=== PATIENT | male | born 1950 | race Hispanic/Latino ===

== ENCOUNTER 2024-03-26 17:51 | Inpatient (IN) | payer OTHER ==
[2024-03-26] MEDS ORDERED: FAMOTIDINE 20 MG/2 ML VIAL IV ONE (18:29)
[2024-03-26] MEDS ORDERED: NA CHLORIDE 0.9% 2,000 ML ONE (18:29)
[2024-03-26] MEDS ORDERED: HYDROCORTISONE SUC 100 MG INJ ONE (18:29)
[2024-03-26] MEDS ORDERED: CEFTRIAXONE 1000 MG/VIAL ONE (18:29)
[2024-03-26 18:51] LABS: Absolute Lymphocytes (CBC) 0.4 K/uL (0.7-4.9); Absolute Monocytes 0.1 K/uL (0.1-1.3); Absolute Neutrophil 9.5 K/uL (1.8-8.0); Basophils % 0.1 % (0-1.3); Hematocrit 45.9 % (39.6-49.0); Hemoglobin 15.4 g/dL (13.6-17.9); Lymphocytes % 3.7 % (15.3-44.8); MCH 32.5 pg (27.0-35.0); MCHC 33.5 g/dL (32.0-36.0); MCV 97.2 fL (80-100); MPV 8.6 fL (7.6-11.3); Monocytes % 0.5 % (3.3-12.3); Neutrophils % 95.7 % (41.7-73.7); PT Prothrombin Time 12.5 SECONDS (9.4-12.5); Platelets 462 thou/uL (152-406); Protime INR 1.12; RBC Red Blood Cell Count 4.72 M/uL (4.33-5.43); Red Cell Distribution Width 13.4 % (12.1-15.2)
[2024-03-26 18:58] LABS: Albumin 3.7 g/dL (3.4-5.0); Anion Gap 20.2 mEq/L (5.0-15.0); Bilirubin Direct 0.8 mg/dL (0-0.2); Bilirubin Indirect, Calculated 0.5 mg/dL (0.2-0.8); Bilirubin Total 1.3 mg/dL (0.2-1.0); Globulin 3.7 g/dL (2.3-3.5); Magnesium 2.5 mg/dL (1.6-2.4); Potassium 4.2 mEq/L (3.5-5.1); Protein, Total 7.4 g/dL (6.4-8.2); Troponin High Sensitivity 21.9 pg/mL (<58.9)
--- NOTE | 2024-03-26 19:16 | RAD REPORT ---
EXAM DESCRIPTION: Cinthia Single View03/26/2024 6:43 pm CLINICAL HISTORY: COUGH COMPARISON: No comparisons TECHNIQUE: Portable AP view of the chest. FINDINGS: The lungs are clear. No pneumothorax or effusion. The cardiomediastinal contours are unre markable. IMPRESSION: No acute cardiopulmonary process.
--- NOTE | 2024-03-26 19:16 | ER ---
Nurse's Notes [facility] Name: Mauricio Gomez Age: 74 yrs Sex: Male : 1950 Arrival Date: 03/26/2024 Time: 17:51 Bed 6 Private MD: Diagnosis: Type 1 diabetes mellitus with hyperglycemia-UNCONTROLLED;Acute kidney failure, unspecified;Dehydration;Syncope Near;Weakness;Sepsis, unspecified organism Presentation: 03/26 17:56 Chief complaint: EMS states: Bystander toned out EMS for a fall. Pt was unloading rs5 groceries from vehicle and legs gave out on him, layed on floor for 30-40 min before help was called. Pt reports LOC. EMS reports pt has been in and out of consciousness in ambulance. Blood sugar readings in 400's. Coronavirus screen: At this time, the client does not indicate any symptoms associated with coronavirus-19. Ebola Screen: No symptoms or risks identified at this time. Initial Sepsis Screen: Does the patient meet any 2 criteria? HR > 90 bpm. Yes Does the patient have a suspected source of infection? No. Patient's initial sepsis screen is negative. Risk Assessment: Do you want to hurt yourself or someone else? Patient reports no desire to harm self or others. Onset of symptoms was March 26, 2024. 17:56 Method Of Arrival: EMS: [facility] rs5 17:56 Acuity: DANA 3 rs5 Historical: - Allergies: 18:00 No Known Allergies; rs5 - PMHx: 18:00 Hypertensive disorder; Cerebrovascular accident; Diabetes mellitus; rs5 - PSHx: 18:01 None; rs5 - Immunization history:: Adult Immunizations up to date. - Infectious Disease History:: Denies. - Social history:: Smoking status: Patient denies any tobacco usage or history of. - Family history:: not pertinent. Screenin:57 [facility] ED Fall Risk Assessment (Adult) History of falling in the last 3 months, rs5 including since admission Yes- single mechanical fall (1 pt) Confusion or Disorientation No (0 pts) Intoxicated or Sedated No (0 pts) Impaired Gait Yes (1 pt) Mobility Assist Device Used No (0 pt) Altered Elimination No (0 pt) Score/Fall Risk Level 0 - 2 = Low Risk Oriented to surroundings, Maintained a safe environment. Abuse screen: Denies threats or abuse. Nutritional screening: No deficits noted. Tuberculosis screening: No symptoms or risk factors identified. Assessment: 17:57 General: Appears in no apparent distress. uncomfortable, Behavior is cooperative. Pain: rs5 Denies pain. Neuro: Level of Consciousness is awake, alert, obeys commands, Oriented to person, place, time, situation. Cardiovascular: Patient's skin is warm and dry. Respiratory: Airway is patent Respiratory effort is even, unlabored, Respiratory pattern is regular, symmetrical. GI: Abdomen is round non-distended, Abd is soft and non tender X 4 quads. : No signs and/or symptoms were reported regarding the genitourinary system. EENT: No signs and/or symptoms were reported regarding the EENT system. Derm: No signs and/or symptoms reported regarding the dermatologic system. Musculoskeletal: Range of motion: intact in all extremities, pt reports generalized weakness. 18:57 Reassessment: Patient and/or family updated on plan of care and expected duration. Pain rs5 level reassessed. Patient is alert, oriented x 3, equal unlabored respirations, skin warm/dry/pink. 19:56 Reassessment: Patient appears in no apparent distress at this time. Patient and/or bm8 family updated on plan of care and expected duration. Pain level reassessed. Patient is alert, oriented x 3, equal unlabored respirations, skin warm/dry/pink. Patient denies pain at this time. Neuro: Level of Consciousness is awake, alert, obeys commands, Oriented to person, place, time, situation. Cardiovascular: Denies chest pain, Capillary refill < 3 seconds Patient's skin is warm and dry. Respiratory: Airway is patent Respiratory effort is even, unlabored, Respiratory pattern is regular, symmetrical. GI: Abdomen is round non-distended, Abd is soft and non tender X 4 quads. : No signs and/or symptoms were reported regarding the genitourinary system. EENT: No signs and/or symptoms were reported regarding the EENT system. Derm: No signs and/or symptoms reported regarding the dermatologic system. Musculoskeletal: Range of motion: intact in all extremities. Vital Signs: 17:56 BP 94 / 58; Pulse 105; Resp 17; Pulse Ox 89% on R/A; rs5 19:56 BP 169 / 92; Pulse 108; Resp 17; Temp 98.2; Pulse Ox 100% ; Pain 0/10; bm8 22:33 BP 157 / 78; Pulse 92; Resp 18; Temp 98.2; Pulse Ox 98% ; Pain 0/10; bm8 19:56 Pain Scale: Adult bm8 22:33 Pain Scale: Adult bm8 Patrice Coma Score: 19:56 Eye Response: spontaneous(4). Motor Response: obeys commands(6). Verbal Response: bm8 oriented(5). Total: 15. NIH Stroke Scale Scores: 18:15 NIHSS Score: 0 [facility] ED Course: 17:56 Patient arrived in ED. rs5 17:57 Patient has correct armband on for positive identification. Placed in gown. Bed in low rs5 position. Call light in reach. Side rails up X2. 18:00 Triage completed. rs5 18:04 Kristopher Hughes MD is Attending Physician. sandor 18:05 Inserted saline lock: 20 gauge in right antecubital area, using aseptic technique. rs5 Blood collected. Flushed with 10 mL NS. 18:05 No provider procedures requiring assistance completed. rs5 18:45 XRAY Chest (1 view) In Process Unspecified. EDMS 19:13 Ruth Hubbard is Hospitalizing Provider. sandor 19:19 CT Head Brain wo Cont In Process Unspecified. EDMS 19:19 CT Chest Abdomen Pelvis W/O Contrast In Process Unspecified. EDMS 19:32 Rafael Ayala, RN is Primary Nurse. bm8 19:56 Initial lab(s) drawn, by ga, sent to lab. Inserted saline lock: 18 gauge in left bm8 forearm, using aseptic technique. Blood collected. Flushed with 10 mL NS. 19:56 Client placed on continuous cardiac and pulse oximetry monitoring. NIBP monitoring bm8 applied. library monitor on. Pulse ox on. NIBP on. Notified Nurse Practitioner and/or Physician Guest Experience Manager of a critical lab result(s), bs 409. 22:36 Patient admitted, IV remains in place. bm8 22:36 Provided Education on: need for admission. bm8 22:38 Arm band placed on right wrist. bm8 Administered Medications: 18:20 Drug: NS 0.9% IV 1000 ml IV at 125 ml/hr continuous Route: IV; Rate: 125 ml/hr; Site: rs5 right antecubital; 22:35 Follow up: Response: No adverse reaction; IV Status: Completed infusion; IV Intake: bm8 1000ml 18:20 Drug: Solu-CORTEF IVP 100 mg IVP once Route: IVP; Site: right antecubital; rs5 20:00 Follow up: Response: No adverse reaction bm8 18:20 Drug: NS 0.9% IV 1000 ml IV at 1 bolus Per protocol; 1000 mL bolus Route: IV; Rate: 1 rs5 bolus; Site: right forearm; 20:00 Follow up: Response: No adverse reaction; IV Status: Completed infusion; IV Intake: bm8 1000ml 18:20 Drug: Rocephin IV 1 grams IV at per protocol once; Given slow IV push per pharmacy rs5 instructions Route: IV; Rate: per protocol; Site: right forearm; 20:00 Follow up: Response: No adverse reaction; IV Status: Completed infusion; IV Intake: 02tzmg4 18:40 Drug: Famotidine IVP 20 mg IVP once; dilute with 10 mL 0.9% NaCl; give over 2 minutes rs5 Route: IVP; Site: right antecubital; 20:00 Follow up: Response: No adverse reaction bm8 19:59 Drug: NS 0.9% IV 1000 ml IV at 1 bolus Per protocol; 1000 mL bolus Route: IV; Rate: 1 bm8 bolus; Site: right antecubital; 22:35 Follow up: IV Status: Completed infusion; IV Intake: 1000ml bm8 19:59 Drug: Insulin Regular Human IVP 10 units IVP once {Co-Signature: Karissa Ocampo RN).} Route: IVP; Site: left forearm; 22:24 Follow up: Response: No adverse reaction bm8 19:59 Drug: Insulin Regular Human Sub-Q 10 units Sub-Q once {Co-Signature: lurdes Ocampo RN).} Route: Sub-Q; Site: abdomen; 22:24 Follow up: Response: No adverse reaction bm8 20:49 Drug: NS 0.9% IV 1000 ml IV at 1 bolus Per protocol; 1000 mL bolus Route: IV; Rate: 1 bm8 bolus; Site: right forearm; 22:24 Follow up: Response: No adverse reaction; IV Status: Completed infusion; IV Intake: bm8 1000ml 22:01 Drug: Insulin Regular Human IVP 10 units IVP once {Co-Signature: kd3 (Ninoska, Karissa bm8 RN).} Route: IVP; Site: left forearm; 22:24 Follow up: Response: No adverse reaction bm8 Medication: 19:56 VIS not applicable for this client. bm8 Intake: 20:00 IV: 1000ml; Total: 1000ml. bm8 20:00 IV: 50ml; Total: 1050ml. bm8 22:24 IV: 1000ml; Total: 2050ml. bm8 22:35 IV: 1000ml; Total: 3050ml. bm8 22:35 IV: 1000ml; Total: 4050ml. bm8 Outcome: 19:16 Decision to Hospitalize by Provider. sandor 22:36 Admitted to Med/surg accompanied by nurse, via wheelchair, room 205, bm8 22:36 Condition: stable 22:36 Instructed on the need for admit, 23:09 Patient left the ED. bm8 NIH Stroke Scale - NIH Stroke Score Date: 03/26/2024 Time: 18:15 Total Score = 0 10. Dysarthria (speech clarity - read or repeat words) - 0(Normal) 11. Extinction and Inattention (visual/tactile/auditory/spatial/personal) - 0(No abnormality) 1a. Level of Consciousness (LOC) - 0(Alert) 1b. Level of Consciousness (LOC) (Month \T\ Age) - 0(Both) 1c. LOC Commands (Open \T\ Closes Eyes/Fitter Tacker) - 0(Both) 2. Best Gaze (Lateral Gaze Paresis) - 0(Normal) 3. Visual Field Loss - 0(No visual loss) 4. Facial Palsy - 0(Normal) 5a. Left Arm: Motor (10-second hold) - 0(No drift) 5b. Right Arm: Motor (10-second hold) - 0(No drift) 6a. Left Leg: Motor (5-second hold - always test supine) - 0(No drift) 6b. Right Leg: Motor (5-second hold - always test supine) - 0(No drift) 7. Limb Ataxia (finger/nose \T\ heel/polo - test with eyes open) - 0(Absent) 8. Sensory Loss (pinprick arms/legs/face) - 0(Normal) 9. Best Language: Aphasia (description/naming/reading) - 0(No aphasia) Initials: sandor Signatures: Dispatcher [employer] EDKristopher Guzman MD MD cha Sotelo, Ricky, RN RN rs5 Rafael Ayala RN RN bm8 Karissa Xiao RN kd3 Corrections: (The following items were deleted from the chart) 18:01 17:56 Chief complaint: EMS states: Bystander toned out EMS for a fall. Pt was rs5 unloading groceries from vehicle and legs gave out on him, layed on floor for 30-40 min before help was called. Pt reports LOC. EMS reports pt has been in and out of consciousness in ambulance. rs5
--- NOTE | 2024-03-26 19:16 | EDPHYS ---
Physician Documentation [facility] Name: Mauricio Gomez Age: 74 yrs Sex: Male : 1950 Arrival Date: 03/26/2024 Time: 17:51 Bed 6 Private MD: ED Physician Kristopher Hughes HPI: 03/26 18:15 This 74 yrs old Male presents to ER via EMS with complaints of syncope, sandor nausea, vomiting, weak. 18:15 The patient presents to the emergency department with nausea, vomiting, that is sandor intermittent. Onset: The symptoms/episode began/occurred just prior to arrival. Possible causes: unknown, flare up of bowel problem, irritable bowel disease, sick contacts. The symptoms are aggravated by movement, pressure, food , The symptoms are alleviated by nothing. The patient has experienced near-syncope, almost passed out, felt generally weak. Associated signs and symptoms: Pertinent positives: anorexia, nausea, vomiting. Context: the episode(s) was witnessed, by no one, occurred at home. Associated injury: The patient did not suffer any apparent associated injury. Associated signs and symptoms: Pertinent positives: dizziness, lightheadedness, nausea, vomiting, weakness. Current symptoms: Currently, the patient is not experiencing any symptoms, the patient feels back to baseline. Severity of symptoms: At their worst the symptoms were moderate in the emergency department the symptoms have improved mildly. The patient has experienced similar episodes in the past, a few times. Historical: - Allergies: 18:00 No Known Allergies; rs5 - PMHx: 18:00 Hypertensive disorder; Cerebrovascular accident; Diabetes mellitus; rs5 - PSHx: 18:01 None; rs5 - Immunization history:: Adult Immunizations up to date. - Infectious Disease History:: Denies. - Social history:: Smoking status: Patient denies any tobacco usage or history of. - Family history:: not pertinent. ROS: 18:15 Constitutional: Negative for fever, chills, and weight loss, Eyes: Negative for injury, sandor pain, redness, and discharge, ENT: Negative for injury, pain, and discharge, Neck: Negative for injury, pain, and swelling, Respiratory: Negative for shortness of breath, cough, wheezing, and pleuritic chest pain, Back: Negative for injury and pain, : Negative for injury, bleeding, discharge, and swelling, MS/Extremity: Negative for injury and deformity, Skin: Negative for injury, rash, and discoloration, Psych: Negative for depression, anxiety, suicide ideation, homicidal ideation, and hallucinations, Allergy/Immunology: Negative for hives, rash, and allergies, Endocrine: Negative for neck swelling, polydipsia, polyuria, polyphagia, and marked weight changes, Hematologic/Lymphatic: Negative for swollen nodes, abnormal bleeding, and unusual bruising, 18:15 Cardiovascular: Positive for palpitations, 18:15 Abdomen/GI: Positive for nausea and vomiting, nausea, vomiting, 18:15 Skin: Positive for pallor, 18:15 Neuro: Positive for weakness, Exam: 18:15 Constitutional: This is a well developed, well nourished patient who is awake, alert, sandor and in no acute distress. Head/Face: Normocephalic, atraumatic. Eyes: Pupils equal round and reactive to light, extra-ocular motions intact. Lids and lashes normal. Conjunctiva and sclera are non-icteric and not injected. Cornea within normal limits. Periorbital areas with no swelling, redness, or edema. ENT: Nares patent. No nasal discharge, no septal abnormalities noted. Tympanic membranes are normal and external auditory canals are clear. Oropharynx with no redness, swelling, or masses, exudates, or evidence of obstruction, uvula midline. Mucous membranes moist. Neck: Trachea midline, no thyromegaly or masses palpated, and no cervical lymphadenopathy. Supple, full range of motion without nuchal rigidity, or vertebral point tenderness. No Meningismus. Chest/axilla: Normal chest wall appearance and motion. Nontender with no deformity. No lesions are appreciated. Respiratory: Lungs have equal breath sounds bilaterally, clear to auscultation and percussion. No rales, rhonchi or wheezes noted. No increased work of breathing, no retractions or nasal flaring. Abdomen/GI: Soft, non-tender, with normal bowel sounds. No distension or tympany. No guarding or rebound. No evidence of tenderness throughout. Back: No spinal tenderness. No costovertebral tenderness. Full range of motion. Male : Normal genitalia with no discharge or lesions. MS/ Extremity: Pulses equal, no cyanosis. Neurovascular intact. Full, normal range of motion. Neuro: Awake and alert, GCS 15, oriented to person, place, time, and situation. Cranial nerves II-XII grossly intact. Motor strength 5/5 in all extremities. Sensory grossly intact. Cerebellar exam normal. Normal gait. Psych: Awake, alert, with orientation to person, place and time. Behavior, mood, and affect are within normal limits. 18:15 Cardiovascular: Rate: actual rate is 105 bpm, Rhythm: regular, Pulses: Pulses are 4+ in bilateral radial, brachial, femoral, popliteal, posterior tibial and and dorsalis pedis arteries.. Heart sounds: normal, Edema: is not appreciated, JVD: is not appreciated, 18:15 Musculoskeletal/extremity: ROM: no acute changes, Circulation is intact in all extremities. Sensation intact. Compartment Syndrome exam of affected extremity: is normal. 18:55 ECG was reviewed by the Attending Physician. [facility] Vital Signs: 17:56 BP 94 / 58; Pulse 105; Resp 17; Pulse Ox 89% on R/A; rs5 19:56 BP 169 / 92; Pulse 108; Resp 17; Temp 98.2; Pulse Ox 100% ; Pain 0/10; bm8 22:33 BP 157 / 78; Pulse 92; Resp 18; Temp 98.2; Pulse Ox 98% ; Pain 0/10; bm8 19:56 Pain Scale: Adult bm8 22:33 Pain Scale: Adult bm8 NIH Stroke Scale Scores: 18:15 NIHSS Score: 0 sandor Patrice Coma Score: 19:56 Eye Response: spontaneous(4). Motor Response: obeys commands(6). Verbal Response: bm8 oriented(5). Total: 15. MDM: 18:04 Patient medically screened. sandor 18:20 Differential diagnosis: Nonspecific abd pain, gastritis, cholecystitis, pancreatitis, sandor appendicitis, diverticulitis, viral gastroenteritis, gastroenteritis. Differential Diagnosis: cardiac arrhythmia, cerebrovascular accident, emotional response, GI bleed, idiopathic syncope, pseudo seizure, seizure, sepsis, transient ischemic attack, vasovagal episode. Data reviewed: vital signs, nurses notes, EMS record, lab test result(s), EKG, radiologic studies, CT scan, plain films. Consideration of Admission/Observation Patient was admitted/placed on observation. Escalation of care including admission/observation considered. I considered the following discharge prescriptions or medication management in the emergency department Medications were administered in the Emergency Department. See MAR. Independent interpretation of the following test(s) in the Emergency Department EKG: See my EKG interpretation above. Test considered but Not performed: CT: no ct abd pelvis. Historians other than the Patient: EMS: ems well informed. Care significantly affected by the following chronic conditions: Diabetes, Hypertension, cva. Counseling: I had a detailed discussion with the patient and/or guardian regarding the historical points, exam findings, and any diagnostic results supporting the discharge/admit diagnosis, lab results, radiology results, the need for further work-up and treatment in the hospital. 03/26 18:06 Order name: Basic Metabolic Panel; Complete Time: 19:07 [facility] 03/26 18:06 Order name: CBC with Diff; Complete Time: 18:54 [facility] 03/26 18:06 Order name: LFT's; Complete Time: 19:07 [facility] 03/26 18:06 Order name: Magnesium; Complete Time: 19:07 [facility] 03/26 18:06 Order name: NT PRO-BNP; Complete Time: 19:07 [facility] 03/26 18:06 Order name: PT-INR; Complete Time: 18:54 [facility] 03/26 18:06 Order name: Troponin HS; Complete Time: 19:07 [facility] 03/26 18:06 Order name: Lipase; Complete Time: 19:07 [facility] 03/26 18:06 Order name: Urinalysis w/ reflexes [facility] 03/26 18:14 Order name: Flu; Complete Time: 19:32 [facility] 03/26 18:14 Order name: SARS RAPID; Complete Time: 19:32 [facility] 03/26 18:14 Order name: Blood Culture Adult (2) [facility] 03/26 18:14 Order name: Lactate w/ 2H reflex if indic.; Complete Time: 19:07 [facility] 03/26 19:16 Order name: ABG [facility] 03/26 19:26 Order name: BMP; Complete Time: 20:35 [facility] 03/26 19:52 Order name: Glucose, Ancillary Testing; Complete Time: 20:10 [facility] 03/26 21:04 Order name: Ghost Lactate-NO COLLECT Timer [facility] 03/26 22:04 Order name: Glucose, Ancillary Testing [facility] 03/26 22:39 Order name: Lactate Sepsis 2 HR Follow-up [facility] 03/26 18:06 Order name: XRAY Chest (1 view); Complete Time: 19:32 [facility] 03/26 18:06 Order name: CT Head Brain wo Cont; Complete Time: 20:10 [facility] 03/26 19:08 Order name: CT Chest Abdomen Pelvis W/O Contrast; Complete Time: 20:10 [facility] 03/26 18:06 Order name: Cardiac monitoring; Complete Time: 18:56 [facility] 03/26 18:06 Order name: EKG - Nurse/Tech; Complete Time: 18:56 [facility] 03/26 18:06 Order name: IV Saline Lock; Complete Time: 18:57 [facility] 03/26 18:06 Order name: Labs collected and sent; Complete Time: 18:57 [facility] 03/26 18:06 Order name: O2 Per Protocol; Complete Time: 18:57 [facility] 03/26 18:06 Order name: O2 Sat Monitoring; Complete Time: 18:57 [facility] 03/26 19:26 Order name: IV Saline Lock - Large Bore; Complete Time: 19:59 [facility] EC:55 Rate is 105 beats/min. Rhythm is regular. QRS [place] is Normal. MI interval is normal. sandor QRS interval is normal. QT interval is normal. No Q waves. T waves are Normal. No ST changes noted. Clinical impression: Sinus tachycardia and No evidence of ischemia. Interpreted by me. Reviewed by me. Administered Medications: 18:20 Drug: NS 0.9% IV 1000 ml IV at 125 ml/hr continuous Route: IV; Rate: 125 ml/hr; Site: rs5 right antecubital; 22:35 Follow up: Response: No adverse reaction; IV Status: Completed infusion; IV Intake: bm8 1000ml 18:20 Drug: Solu-CORTEF IVP 100 mg IVP once Route: IVP; Site: right antecubital; rs5 20:00 Follow up: Response: No adverse reaction bm8 18:20 Drug: NS 0.9% IV 1000 ml IV at 1 bolus Per protocol; 1000 mL bolus Route: IV; Rate: 1 rs5 bolus; Site: right forearm; 20:00 Follow up: Response: No adverse reaction; IV Status: Completed infusion; IV Intake: bm8 1000ml 18:20 Drug: Rocephin IV 1 grams IV at per protocol once; Given slow IV push per pharmacy rs5 instructions Route: IV; Rate: per protocol; Site: right forearm; 20:00 Follow up: Response: No adverse reaction; IV Status: Completed infusion; IV Intake: [id number] 18:40 Drug: Famotidine IVP 20 mg IVP once; dilute with 10 mL 0.9% NaCl; give over 2 minutes rs5 Route: IVP; Site: right antecubital; 20:00 Follow up: Response: No adverse reaction bm8 19:59 Drug: NS 0.9% IV 1000 ml IV at 1 bolus Per protocol; 1000 mL bolus Route: IV; Rate: 1 bm8 bolus; Site: right antecubital; 22:35 Follow up: IV Status: Completed infusion; IV Intake: 1000ml bm8 19:59 Drug: Insulin Regular Human IVP 10 units IVP once {Co-Signature: kd3 (Karissa Xiao RN).} Route: IVP; Site: left forearm; 22:24 Follow up: Response: No adverse reaction bm8 19:59 Drug: Insulin Regular Human Sub-Q 10 units Sub-Q once {Co-Signature: kd3 (lurdes Xiao RN).} Route: Sub-Q; Site: abdomen; 22:24 Follow up: Response: No adverse reaction bm8 20:49 Drug: NS 0.9% IV 1000 ml IV at 1 bolus Per protocol; 1000 mL bolus Route: IV; Rate: 1 bm8 bolus; Site: right forearm; 22:24 Follow up: Response: No adverse reaction; IV Status: Completed infusion; IV Intake: bm8 1000ml 22:01 Drug: Insulin Regular Human IVP 10 units IVP once {Co-Signature: kd3 (Karissa Xiao RN).} Route: IVP; Site: left forearm; 22:24 Follow up: Response: No adverse reaction bm8 Disposition Summary: 03/26/24 19:16 Hospitalization Ordered Notes: Hospitalization Status: Inpatient Admission sandor Provider: Ruth Hubbard cha Location: Telemetry/MedSurg (Inpatient) sandor Condition: Fair sandor Problem: new sandor Symptoms: have improved sandor Bed/Room Type: Standard sandor Room Assignment: 210(03/26/24 22:20) kl Diagnosis - Type 1 diabetes mellitus with hyperglycemia - UNCONTROLLED sandor - Acute kidney failure, unspecified sandor - Dehydration sandor - Syncope Near sandor - Weakness sandor - Sepsis, unspecified organism sandor Forms: - Medication Reconciliation Form sandor - SBAR form sandor - Leadership Thank You Letter sandor NIH Stroke Scale - NIH Stroke Score Date: 03/26/2024 Time: 18:15 Total Score = 0 10. Dysarthria (speech clarity - read or repeat words) - 0(Normal) 11. Extinction and Inattention (visual/tactile/auditory/spatial/personal) - 0(No abnormality) 1a. Level of Consciousness (LOC) - 0(Alert) 1b. Level of Consciousness (LOC) (Month \T\ Age) - 0(Both) 1c. LOC Commands (Open \T\ Closes Eyes/Medical Front Desk Specialist) - 0(Both) 2. Best Gaze (Lateral Gaze Paresis) - 0(Normal) 3. Visual Field Loss - 0(No visual loss) 4. Facial Palsy - 0(Normal) 5a. Left Arm: Motor (10-second hold) - 0(No drift) 5b. Right Arm: Motor (10-second hold) - 0(No drift) 6a. Left Leg: Motor (5-second hold - always test supine) - 0(No drift) 6b. Right Leg: Motor (5-second hold - always test supine) - 0(No drift) 7. Limb Ataxia (finger/nose \T\ heel/polo - test with eyes open) - 0(Absent) 8. Sensory Loss (pinprick arms/legs/face) - 0(Normal) 9. Best Language: Aphasia (description/naming/reading) - 0(No aphasia) Initials: sandor Signatures: Dispatcher [employer] EDBrenda Ceja, RN Kristopher Corbett MD MD cha Sotelo, Ricky, RN RN rs5 Rafael Ayala RN RN bm8 Karissa Xiao RN kd3 Corrections: (The following items were deleted from the chart) 18:06 18:06 BASIC METABOLIC PANEL+C.LAB.BRZ ordered. EDMS EDMS 18:06 18:06 CBC+H.LAB.BRZ ordered. EDMS EDMS 18:06 18:06 HEPATIC FUNCTION+C.LAB.BRZ ordered. EDMS EDMS 18:06 18:06 MAGNESIUM+C.LAB.BRZ ordered. EDMS EDMS 18:06 18:06 PROBNP+C.LAB.BRZ ordered. EDMS EDMS 18:06 18:06 PROTIME (+INR)+COAG.LAB.BRZ ordered. EDMS EDMS 18:06 18:06 Troponin High Sensitivity+C.LAB.BRZ ordered. EDMS EDMS 18:06 18:06 LIPASE+C.LAB.BRZ ordered. EDMS EDMS 18:06 18:06 Urinalysis+U.LAB.BRZ ordered. EDMS EDMS 18:06 18:06 Chest Single View+RAD.RAD.BRZ ordered. EDMS EDMS 18:07 18:07 Head Brain Wo Cont+CT.RAD.BRZ ordered. EDMS EDMS 18:15 18:15 Influenza Screen (A \T\ B)+BA.LAB.BRZ ordered. EDMS EDMS 18:15 18:15 SARS-COV-2 Antigen Rapid+I.LAB.BRZ ordered. EDMS EDMS 18:15 18:15 BLOOD CULTURE*+BA.LAB.BRZ ordered. EDMS EDMS 18:15 18:15 LACTATE+C.LAB.BRZ ordered. EDMS EDMS 22:20 19:16 sandor kl
[2024-03-26 19:22] LABS: SARS-CoV-2 Antigen CONTROL BLUE LINE VIS/BG OK; SARS-CoV-2 Antigen Rapid Res Negative (Negative)
--- NOTE | 2024-03-26 19:46 | RAD REPORT ---
EXAM DESCRIPTION: CT - Head Brain Wo Cont - 03/26/2024 7:17 pm CLINICAL HISTORY: SYNCOPE COMPARISON: No comparisons TECHNIQUE: Noncontrast head CT images were obtained without IV contrast. Multiplanar reformats were generated and reviewed. All CT scans are performed using dose optimization technique as appropriate and may include automated exposure control or mA/KV adjustment according to patient size. FINDINGS: No intracranial hemorrhage, mass, or edema. Midline structures are unremarkable. Moderate diffuse parenchymal volume loss. Patchy periventricular hypodensities, nonspecific, but most suggestive of chronic small vessel ischemic changes. Osullivan-white matter differentiation is preserved, without evidence of acute infarct. No abnormal extra- axial fluid collections. Mastoid air cells and visualized portions of the paranasal sinuses are clear. No acute bony findings. IMPRESSION: No evidence of an acute intracranial process.
[2024-03-26] MEDS ORDERED: INSULIN REGULAR (HUMAN) 100 UNIT/ML ONE ×2 (19:52→22:00)
--- NOTE | 2024-03-26 19:55 | RAD REPORT ---
EXAM DESCRIPTION: CT - Chest Abd Pelvis Wo Con - 03/26/2024 7:18 pm CLINICAL HISTORY: Cough;Pain COMPARISON: Head Brain Wo Cont dated 03/26/2024 TECHNIQUE: Thin axial CT images of the chest, abdomen, and pelvis, performed without IV contrast. Mu ltiplanar reformats were generated and reviewed. All CT scans are performed using dose optimization technique as appropriate and may include automated exposure control or mA/KV adjustment according to patient size. FINDINGS: The lungs are clear.No pleural or pericardial effusion.No intrathoracic adenopathy. The liver, spleen, pancreas, adrenal glands and kidneys are within normal limits. No bowel obstruction, free air, free fluid or abscess. Cholelithiasis. Moderate prostatomegaly. . No pathologic lymphadenopathy in the abdomen or pelvis. No worrisome osseous finding. IMPRESSION: No acute traumatic findings. Cholelithiasis. Moderate prostatomegaly.
[2024-03-26 20:15] LABS: Anion Gap 14.2 mEq/L (5.0-15.0); Potassium 4.2 mEq/L (3.5-5.1)
[2024-03-26 20:16] LABS: Arterial Blood Carboxyhemoglob 1.3 % (0-1.5); Blood Gas Oxyhemoglobin 92.1 % (94-97); Blood Gas THB 15.9 g/dl (12-18)
[2024-03-26] MEDS ORDERED: NA CHLORIDE 0.9% 1,000 ML ONE (20:31)
[2024-03-26 20:50] LABS: Specific Gravity 1.008 (1.005-1.030); Sqamous Epithelial <5 /HPF (None Seen); Urine Bacteria None Seen /HPF (<20); Urine Bilirubin NEGATIVE (Negative); Urine Blood Trace (Negative); Urine Clarity Turbid (Clear); Urine Color Light-Yellow (Yellow); Urine Culture Reflex Order NOT NEEDED; Urine Glucose 4+ (Over) (Negative); Urine Ketones TRACE (Negative); Urine Microscopic Reflex YN ORDER UMIC; Urine Mucus Slight /HPF (None Seen); Urine Nitrite NEGATIVE (Negative); Urine Protein NEGATIVE (Negative); Urine RBC <5 /HPF (None Seen); Urine Urobilinogen Normal (Normal); Urine WBC <5 /HPF (<5)
--- NOTE | 2024-03-26 21:45 | P.HP ---
Certification for Inpatient Patient admitted to: Observation Practitioner: I am a practitioner with admitting privileges, knowledge of patient current condition, hospital course, and medical plan of care. Services: Services provided to patient in accordance with Admission requirements found in Title 42 Section 412.3 of the Code of Federal Regulations Patient History Date of Service: 03/26/24 Reason for admission: presyncope History of Present Illness: 74-year-old male presented to ER with complaints of fall. The patient reported earlier today at his apartment he was taking groceries from his car. He had acute right knee weakness that he felt gave out and he fell. He denies having any head pain trauma or loss of consciousness. He reports he may not have entirely remembered all the details. Denies any recent fevers, diarrhea, cough but does report having shortness of breath. He does all report having a history of COPD. He did report having some nausea and vomiting. And felt that he a lmost passed out and felt generally weak. - Past Medical/Surgical History Diabetic: Yes Review of Systems 10-point ROS is otherwise unremarkable General: Weakness, Malaise Respiratory: Shortness of Breath Physical Examination - Physical Exam General: In no apparent distress, Oriented x3 HEENT: Atraumatic, Normocephalic Respiratory: Clear to auscultation bilaterally, Normal air movement Cardiovascular: Normal pulses, Regular rate/rhythm Gastrointestinal: Normal bowel sounds, Soft and benign, Non-distended Musculoskeletal: No clubbing, No swelling Integumentary: No rashes Neurological: Normal speech - Studies Laboratory Data (last 24 hrs) 03/26/24 03/26/24 03/26/24 19:46 18:21 18:21 WBC 9.90 Hgb 15.4 Hct 45.9 Plt Count 462 H PT 12.5 INR 1.12 Sodium 130 L Potassium 4.2 BUN 28 H Creatinine 1.85 H Glucose 441 H* Magnesium Total Bilirubin AST ALT Alkaline Phosphatase Lipase 03/26/24 18:21 WBC Hgb Hct Plt Count PT INR Sodium 129 L Potassium 4.2 BUN 28 H Creatinine 2.22 H Glucose 467 H* Magnesium 2.5 H Total Bilirubin 1.3 H AST 42 H ALT 105 H Alkaline Phosphatase 255 H Lipase 75 Microbiology Data (last 24 hrs): 03/26/24 18:51 Nasopharnyx Influenza Type A Antigen Screen - Final 03/26/24 18:51 Nasopharnyx Influenza Type B Antigen Screen - Final Assessment and Plan - Problems (Diagnosis) (1) Pre-syncope Current Visit: Yes Status: Acute (2) Diabetes Current Visit: Yes Status: Acute (3) COPD (chronic obstructive pulmonary disease) Current Visit: Yes Status: Acute - Plan chest x-ray no acute cardiopulmonary process head CT no evidence of acute intracranial process CT abdomen pelvis no acute finding, cholelithiasis, moderate prostatomegaly 74-year-old male history diabetes, COPD presented with right knee weakness fall and concern for presyncope. Presyncope Fall Right knee weakness --could be 2/2 OA, volume depletion --IVF, telemetry, consider PT consult in AM COPD Shortness of breath --sats stable on RA, prn albuterol Diabetes --fsbs,ssi --blood sugars elevated on arrival Acute kidney injury --likely prerenal, continue IVF, repeat labs --avoid nephrotoxic medications Hyponatremia --wnl , sodium correction for hyperglycemia DVT: SCDs Code: Full - Advance Directives Does patient have a Living Will: No Does patient have a Durable POA for Healthcare: No
[2024-03-26 23:41] VITALS: BMI 24.4
[2024-03-26] MEDS ORDERED: ALBUTEROL INHALER 200 PUFF/6.7 GM IH PRN (23:41)
[2024-03-26] MEDS ORDERED: ONDANSETRON 4 MG/2 ML VIAL IV PRN (23:41)
[2024-03-27] MEDS: NA CHLORIDE 0.9% 1,000 ML IV SCH ×2 (00:29→18:19)
[2024-03-27] MEDS: HEPARIN 5000 UNIT/ML 1 ML VIAL SQ SCH (00:30)
[2024-03-27 06:06] LABS: Absolute Lymphocytes (CBC) 0.7 K/uL (0.7-4.9); Absolute Monocytes 0.5 K/uL (0.1-1.3); Absolute Neutrophil 10.2 K/uL (1.8-8.0); Basophils % 0.2 % (0-1.3); Hematocrit 38.3 % (39.6-49.0); Lymphocytes % 6.5 % (15.3-44.8); MCH 32.9 pg (27.0-35.0); MCV 96.9 fL (80-100); MPV 8.3 fL (7.6-11.3); Monocytes % 4.4 % (3.3-12.3); Neutrophils % 88.9 % (41.7-73.7); Nucleated Red Blood Cells % 0.1 % (0-0); Platelets 317 thou/uL (152-406); RBC Red Blood Cell Count 3.95 M/uL (4.33-5.43); Red Cell Distribution Width 13.3 % (12.1-15.2)
[2024-03-27 06:27] LABS: Albumin 2.9 g/dL (3.4-5.0); Anion Gap 9.2 mEq/L (5.0-15.0); Bilirubin Total 0.8 mg/dL (0.2-1.0); Magnesium 2.2 mg/dL (1.6-2.4); Phosphorus 2.6 mg/dL (2.5-4.9); Potassium 4.2 mEq/L (3.5-5.1); Protein, Total 5.9 g/dL (6.4-8.2)
[2024-03-27] MEDS ORDERED: ALBUTEROL 2.5 MG/3 ML NEB SOL NEB PRN ×2 (07:11→17:34)
[2024-03-27] MEDS: INSULIN REGULAR (HUMAN) 100 UNIT/ML SQ SCH (08:44)
[2024-03-27 09:06] LABS: Blood Morphology Comment NOT SEEN (NOT SEEN); Platelet Estimate ADEQ; White Blood Cell Scan OK (OK)
--- NOTE | 2024-03-27 11:41 | P.PN ---
Date of Service: 03/27/24 Subjective: feeling close to his normal self. ~70-80% back to normal. Feels a little unsteady on his feet remembers events prior to episode. states his legs gave out and collapsed to the ground. felt lightheaded, weak at the time. was on the ground for 20-30 minutes prior to EMS arrival prior stroke in 2016 left patient with residual right sided deficits, weakness, balance issues had balance issues 2-3 days prior to episode. thinks he may have missed a few days of his insulin at home prior to hospitalization. reports nausea/vomiting for a couple days a few days prior to admission. urine light-alfred yellow today. unsure what it looked like yesterday ROS: 10 point ROS as noted above, otherwise negative Physical Exam: GEN: Alert, oriented, NAD HEENT: Normal conjunctiva, sclera anicteric CV: Regular rate and rhythm, no edema Pulm: Nonlabored respirations on room air, clear bilaterally ABD: Soft, nontender, nondistended Integumentary: small superficial skin tear right knee Neuro: Normal speech, normal affect vitals reviewed Problem List: DKA IDDM2 s/p Fall TEMO Hyponatremia Elevated LFTs Lactic acidosis, improving. secondary to dehydration / DKA COPD, chronic tobacco dependance Hypertension hx CVA (2015) DKA IDDM2 s/p Fall not compliant with insulin at home. has not checked glc levels in a while. unknown when last took insulin glc in 400s, anion gap, acidotic felt some improvement in ED after given ~4L IV fluids, and insulin CT chest/abd (03/26): Cholelithasis. Moderate prostatomegaly. CXR / CT head both negative. reports he may have missed a few days of his insulin at home prior to hospitalization. +recently had insulin medication changed in the last 2-4 weeks. had some intermittent nausea/vomiting that lasted for 3-5 days, resolved a day or 2 before admission. screen printing paster consulted - patient with questions regarding diabetic diet confirm home dose insulin. accu-cheks, SSI continue IV fluids a1c 7.9 gap closed, glc improved TEMO Hyponatremia Creatinine 2.22, Sodium 129 Monitor renal function Monitor and replete electrolytes as needed secondary to prerenal / DKA Continue IV fluids Creatinine, sodium improving CPK 409 (03/27) Elevated LFTs unknown origin. likely from hypotension improving COPD, chronic confirm home meds, restart as appropriate PRN albuterol tobacco dependance cessation advised Hypertension hx CVA (2016) confirm home meds, restart as appropriate VTE: Heparin sq Code: Full Dispo: Home, ~1 day anticipate discharge tomorrow if labs stable / able to ambulate without issues Time Spent Managing Pts Care (In Minutes): 45
--- NOTE | 2024-03-27 11:43 | EKG ---
Test Date: 2024-03-26 Test Time: 18:45:38 Coupling Machine Operator: LEENA MEASUREMENT RESULTS: Intervals: Rate: 105 MT: 168 QRSD: 148 QT: 368 QTc: 486 [place]: P: 62 MT: 168 QRS: -84 T: 37 INTERPRETIVE STATEMENTS: Sinus tachycardia Right bundle branch block Left anterior fascicular block Bifascicular block Abnormal ECG No previous ECG available for comparison Electronically Signed On 03-27-24 11:42:16 CDT by Oliver Harris
--- NOTE | 2024-03-27 11:43 | EKG ---
Test Date: 2024-03-26 Test Time: 18:46:04 Dynamite Packing Machine Operator: LEENA MEASUREMENT RESULTS: Intervals: Rate: 105 ME: 170 QRSD: 142 QT: 412 QTc: 544 [place]: P: 61 ME: 170 QRS: -85 T: 37 INTERPRETIVE STATEMENTS: Sinus tachycardia Right bundle branch block Left anterior fascicular block Bifascicular block Abnormal ECG Compared to ECG 03/26/2024 18:45:38 No significant changes Electronically Signed On 03-27-24 11:42:14 CDT by Oliver Harris
[2024-03-27] MEDS: INSULIN GLARGINE 100 UNIT/ML SQ SCH (22:05)
[2024-03-27] MEDS: FUROSEMIDE 40 MG/4 ML VIAL ONE (22:18)
[2024-03-27] MEDS ORDERED: LEVALBUTEROL 1.25 MG/3 ML NEB NEB PRN (22:19)
[2024-03-27] MEDS: METOPROLOL TARTRATE 5 MG/5 ML INJ IV ONE (22:19)
[2024-03-27] MEDS: LEVALBUTEROL 1.25 MG/3 ML NEB ONE (22:20)
[2024-03-27] MEDS: FUROSEMIDE 40 MG/4 ML VIAL IV ONE (22:23)
[2024-03-27] MEDS: METOPROLOL TARTRATE 5 MG/5 ML INJ IV STA (22:32)
[2024-03-27] MEDS: HYDRALAZINE HCL 20 MG/ML VIAL ONE (22:34)
[2024-03-27] MEDS: HYDRALAZINE HCL 20 MG/ML VIAL IV ONE (22:38)
--- NOTE | 2024-03-27 22:38 | RAD REPORT ---
EXAM DESCRIPTION: RAD - Chest Single View - 03/27/2024 10:30 pm CLINICAL HISTORY: SOB Chest pain. COMPARISON: Chest Single View dated 03/26/2024; Chest Abd Pelvis Wo Con dated 03/26/2024 FINDINGS: Portable technique limits examination quality. Patchy airspace opacity is present, greater on the right which may represent moderate pulmonary edema or less likely pneumonia. The heart is normal in size. No displaced fractures.
[2024-03-28 06:04] LABS: Hematocrit 44.1 % (39.6-49.0); Hemoglobin 14.8 g/dL (13.6-17.9); MCH 32.4 pg (27.0-35.0); MCHC 33.5 g/dL (32.0-36.0); MCV 96.6 fL (80-100); MPV 8.6 fL (7.6-11.3); Platelets 385 thou/uL (152-406); RBC Red Blood Cell Count 4.56 M/uL (4.33-5.43); Red Cell Distribution Width 13.6 % (12.1-15.2)
[2024-03-28 06:45] LABS: Albumin 3.2 g/dL (3.4-5.0); Albumin/Globulin Ratio 0.9 (1.1-1.8); Anion Gap 9.1 mEq/L (5.0-15.0); Globulin 3.6 g/dL (2.3-3.5); Magnesium 1.9 mg/dL (1.6-2.4); Potassium 4.1 mEq/L (3.5-5.1); Protein, Total 6.8 g/dL (6.4-8.2)
[2024-03-28] MEDS: INSULIN GLARGINE 100 UNIT/ML SQ SCH (08:42)
--- NOTE | 2024-03-28 09:00 | P.PN ---
Date of Service: 03/28/24 Subjective: SVT and hypoxia overnight cxr with pulm edema feeling better after IV lasix given on 2L NC ROS: 10 point ROS as noted above, otherwise negative Physical Exam: GEN: Alert, oriented, NAD HEENT: Normal conjunctiva, sclera anicteric CV: Regular rate and rhythm, no edema Pulm: Nonlabored respirations on 2L NC, b/l crackles ABD: Soft, nontender, nondistended Integumentary: small superficial skin tear right knee Neuro: Normal speech, normal affect vitals reviewed Problem List: DKA, resolved IDDM2 s/p Fall SVT acute hypoxemic respiratory failure secondary to acute systolic CHF Exacerbation TEMO Hyponatremia Elevated LFTs Lactic acidosis, improving. secondary to dehydration / DKA COPD, chronic tobacco dependance Hypertension hx CVA (2015) DKA, resolved IDDM2 s/p Fall not compliant with insulin at home. has not checked glc levels in a while. unknown when last took insulin glc in 400s, anion gap, acidotic felt some improvement in ED after given ~4L IV fluids, and insulin CT chest/abd (03/26): Cholelithasis. Moderate prostatomegaly. CXR / CT head both negative. reports he may have missed a few days of his insulin at home prior to hospitalization. +recently had insulin medication changed in the last 2-4 weeks. had some intermittent nausea/vomiting that lasted for 3-5 days, resolved a day or 2 before admission. [facility] consulted - patient with questions regarding diabetic diet continue semglee 30u. Adjust as needed. accu-cheks, SSI continue IV fluids a1c 7.9 gap closed, glc improved SVT acute hypoxemic respiratory failure secondary to acute systolic CHF Exacerbation few runs of SVT noted overnight per tele, patient HR increased to 130-150s, BP in 220s. felt dizzy, lightheaded at the time. +SOB - desat to 88% on room air denies chest pain. No palpitations. echo ordered to eval EF / stenosis repeat CXR (03/27): noted some patchy hazy bilateral opacities R > L, likely mod pulm edema given IV lasix x1 overnight ~did get 4L IVF in ED may need another dose of lasix today Cardiology consulted Start metoprolol 25 mg BID per cardio f/u outpatient - will need 2 week monitor TEMO Hyponatremia Creatinine 2.22, Sodium 129 Monitor renal function Monitor and replete electrolytes as needed secondary to prerenal / DKA Continue IV fluids Creatinine, sodium stable CPK 409 (03/27) Elevated LFTs unknown origin. likely from hypotension ~same. daily labs COPD, chronic confirm home meds, restart as appropriate PRN albuterol tobacco dependance cessation advised Hypertension hx CVA (2015) confirm home meds, restart as appropriate VTE: Heparin sq Code: Full Dispo: Home, ~1 day pending cardiac recs / off oxygen Time Spent Managing Pts Care (In Minutes): 45
[2024-03-28] MEDS: METOPROLOL TAR 25 MG TAB PO SCH (10:23)
--- NOTE | 2024-03-28 11:06 | P.CNS ---
Date of Consult: 03/28/24 Chief Complaint: presyncope History of Present Illness: Patient with of HTN, presented with weakness, fall, mechanical, denies chest pain, no SOB, no palpitations, no dizzy spells, no syncope. Allergies No Known Allergies Allergy (Unverified 03/26/24 23:40) Home medications list reviewed: Yes Home Medications: Atorvastatin Calcium [Lipitor*] 20 mg PO BEDTIME 03/27/24 Insulin Detemir [Levemir] 35 units SQ DAILY 03/27/24 Lisinopril [Zestril] 10 mg PO DAILY 03/27/24 Metformin ER [Glucophage ER*] 500 mg PO DAILY 03/27/24 - Past Medical/Surgical History Diabetic: Yes -: Stroke -: IDDM -: HLD -: Sleep apnea -: HTN - Social History Alcohol use: Yes CD- Drugs: No Caffeine use: Yes Place of Residence: Home Review of Systems 10-point ROS is otherwise unremarkable Physical Examination Temp Pulse Resp BP Pulse Ox 97.5 F 88 16 133/69 96 03/28/24 08:00 03/28/24 10:23 03/28/24 08:00 03/28/24 10:23 03/28/24 08:00 General: Alert, In no apparent distress HEENT: Atraumatic, PERRLA, Mucous membr. moist/pink, EOMI, Sclerae nonicteric Neck: Supple, 2+ carotid pulse no bruit, No LAD, Without JVD or thyroid abnormality Respiratory: Clear to auscultation bilaterally, Normal air movement Cardiovascular: Regular rate/rhythm, Normal S1 S2 Gastrointestinal: Normal bowel sounds, No tenderness Musculoskeletal: No tenderness Integumentary: No rashes Neurological: Normal gait, Normal speech, Normal tone, Normal affect Lymphatics: No axilla or inguinal lymphadenopathy - Problems (1) SVT (supraventricular tachycardia) Current Visit: Yes Status: Acute Plan: few runs were noted on tele, start patient on metoprolol 25 mg po BID outpatient cardiology follow up for 14 days monitor (2) HTN (hypertension) Current Visit: Yes Status: Acute Plan: BP is with in normal limit, continue to monitor (3) Pre-syncope Current Visit: Yes Status: Acute Plan: can be related to SVT, although denies palpitations start metoprolol and follow up as outpatient with cardiology
--- NOTE | 2024-03-28 13:08 | ECHO ---
HEIGHT: 5 ft 11 in WEIGHT: 175 lb 0 oz DATE OF STUDY: 03/28/[address]: Brett Mojica MD 2-DIMENSIONAL: YES M.MODE: YES DOPPLER: YES COLOR FLOW: YES TDS: PORTABLE: YES DEFINITY: BUBBLE STUDY: DIAGNOSIS: EVALUATE FUNCTION CARDIAC HISTORY: CATHERIZATION: SURGERY: PROSTHETIC VALVE: PACEMAKER: MEASUREMENTS (cm) DIASTOLIC (NORMALS) SYSTOLIC (NORMALS) IVSd 1.1 (0.6-1.2) LA Diam 3.8 (1.9-4.0) LVEF 40% LVIDd 4.5 (3.5-5.7) LVIDs 3.7 (2.0-3.5) %FS 17% LVPWd 1.1 (0.6-1.2) Ao Diam 2.8 (2.0-3.7) 2 DIMENSIONAL ASSESSMENT: RIGHT ATRIUM: NORMAL LEFT ATRIUM: NORMAL RIGHT VENTRICLE: NORMAL LEFT VENTRICLE: NORMAL TRICUSPID VALVE: MILD TRICUSPID REGURGITATION MITRAL VALVE: MILD MITRAL REGURGITATION PULMONIC VALVE: NORMAL AORTIC VALVE: MILD CALCIFIED PERICARDIAL EFFUSION: NONE AORTIC ROOT: NORMAL LEFT VENTRICULAR WALL MOTION: 1. MODERATE GLOBAL HYPOKINESIS 2. MILD TO DISTAL [place] SEPTAL, ANTERIOR AND APICAL WALL SEVERE HYPOKINESIS DOPPLER/COLOR FLOW: GRADE II DIASTOLIC DYSFUCNTION COMMENTS: 1. MODERATE REDUCED LEFT VENTRICULAR SYSTOLIC FUNCTION, EJECTION FRACTION 40%, MODERATE GLOBAL HYPOKINESIS WITH MID TO DISTAL [place]/ [place] SEPTAL AND APICAL WALL SEVERE HYPOKINESIS 2. GRADE II DIASTOLIC DYSFUNCTION 3. MODERATE PULMONARY HYPOKINESIS (RIGHT VENTRICULAR SYSTOLIC PRESSURE 45-50 mmHg) 4. MILD MITRAL REGURGITATION TECHNOLOGIST: CARISSA RASMUSSEN
[2024-03-29 05:25] LABS: Absolute Lymphocytes (CBC) 1.3 K/uL (0.7-4.9); Absolute Monocytes 0.7 K/uL (0.1-1.3); Absolute Neutrophil 8.5 K/uL (1.8-8.0); Basophils % 0.3 % (0-1.3); Eosinophils % 0.2 % (0-4.4); Hematocrit 40.7 % (39.6-49.0); Lymphocytes % 12.3 % (15.3-44.8); MCH 33.2 pg (27.0-35.0); MCHC 34.4 g/dL (32.0-36.0); MCV 96.6 fL (80-100); MPV 8.8 fL (7.6-11.3); Monocytes % 6.9 % (3.3-12.3); Neutrophils % 80.3 % (41.7-73.7); Platelets 329 thou/uL (152-406); RBC Red Blood Cell Count 4.21 M/uL (4.33-5.43); Red Cell Distribution Width 13.3 % (12.1-15.2)
[2024-03-29 05:39] LABS: Albumin 2.7 g/dL (3.4-5.0); Albumin/Globulin Ratio 0.8 (1.1-1.8); Anion Gap 9.4 mEq/L (5.0-15.0); Bilirubin Total 1.2 mg/dL (0.2-1.0); Globulin 3.5 g/dL (2.3-3.5); Magnesium 2.2 mg/dL (1.6-2.4); Potassium 3.4 mEq/L (3.5-5.1); Protein, Total 6.2 g/dL (6.4-8.2)
--- NOTE | 2024-03-29 13:35 | EKG ---
Test Date: 2024-03-27 Test Time: 22:36:41 Aerodynamic Consultant: BRADLEY MEASUREMENT RESULTS: Intervals: Rate: 112 KS: 196 QRSD: 126 QT: 330 QTc: 450 [place]: P: 7 KS: 196 QRS: -73 T: 90 INTERPRETIVE STATEMENTS: Sinus tachycardia Left axis deviation Right bundle branch block Left ventricular hypertrophy with repolarization abnormality Anterior infarct, age undetermined Abnormal ECG Compared to ECG 03/26/2024 18:46:04 Left-axis deviation now present Left ventricular hypertrophy now present Early repolarization now present Myocardial infarct finding now present Left anterior fascicular block no longer present Bifascicular block no longer present Electronically Signed On 03-29-24 13:30:52 CDT by Lionel Espinoza
[2024-03-29 16:20] VITALS: O2SAT 96
[2024-03-29 17:27] VITALS: BP 149/72; TEMP 97.5
--- NOTE | 2024-03-29 20:34 | PN ---
Date of Progress Note: 03/29/2024 Subjective: Seen by bedside. Doing well. Review of Systems: No chest pain. No shortness of breath. No nausea, vomiting, diarrhea. No abdominal pain. All othe r systems were reviewed. Physical Examination: Vital signs: Reviewed. Head and Neck: Pupils are equal, reactive to light. Intact eye movements. No JVD. No cervical lym phadenopathy. Neck is supple. Thyroid is not enlarged. Lungs: Clear to auscultation bilaterally. No rhonchi, wheezing, or crackles. No accessory muscle u se. Heart: Irregular. No extra sounds. Abdomen: Soft, nontender. Bowel sounds positive. No organomegaly. No masses or hernia. No rigidi ty or rebound. Extremities: No edema, clubbing, or cyanosis. Intact pulses. Skin: No rashes. Neurologic: Alert, awake, oriented x3. No acute focal deficits appreciated. Investigations: BUN is 19, creatinine 0.64. Hemoglobin is 14 and his troponins are negative. Assessment/recommendations: 1.Atrial fibrillation with rapid ventricular response, new onset. His QTc interval is borderline, s o recommend metoprolol 25 mg twice a day. Also, would recommend to start him on anticoagulation with an Eliquis 5 mg twice a day. 2.Systolic heart failure, mild drop in ejection fraction, unknown etiology. I recommend a coronary angiogram, which can be done as an outpatient. The patient does not want to wait until early next we ek and he will follow up with me next week and we will plan for coronary angiogram in the near future and if the coronaries are clean, then LEE cardioversion might need to be done to restore sinus rhyth m due to the systolic heart failure. 3.Hypertension. Blood pressure is controlled. 4.Diabetes. Appears to be controlled. Discussed the case with Dr. Mojica and the patient's family. SR/MODL Voice ID: [id number] Report ID: [id number]
--- NOTE | 2024-03-30 06:51 | P.DS ---
Admission Date: 03/27/24 Discharge Date: 03/30/24 Disposition: ROUTINE DISCHARGE Discharge Condition: GOOD Reason for Admission: presyncope Consultations: Cardiology - Dr. Harris / Dr. Espinoza Brief History of Present Illness: 74yo F, PMH: IDDM2, chronic systolic CHF, COPD, tobacco use, Hypertension, hx CVA (2016) Patient presented to ER with complaints of fall. The patient reported earlier today at his apartment he was taking groceries from his car. He had acute right knee weakness that he felt gave out and he fell. He denies having any head pain trauma or loss of consciousness. He reports he may not have entirely remembered all the details. Denies any recent fevers, diarrhea, cough but does report having shortness of breath. He does all report having a history of COPD. He did report having some nausea and vomiting. And felt that he almost passed out and felt generally weak. Hospital Course: Problem List: DKA, resolved IDDM2 s/p Fall SVT acute hypoxemic respiratory failure secondary to acute systolic CHF Exacerbation TEMO, resolved Hyponatremia, resolved Elevated LFTs, improving Lactic acidosis, improved COPD, chronic tobacco dependance Hypertension hx CVA (2016) Physician discharge instructions: Patient presented to ED with weakness after sustaining a fall and being found laying on the ground for 20-30 min. Suspect secondary to DKA as patient reports not having strict adherence with insulin at home. Anion gap of 20.2, glc levels >400. CT chest/abd noted Cholelithasis, Moderate prostatomegaly, otherwise negative. CXR / CT head negative. He was given ~4L of IV fluids along with insulin in the ED and had improvement of his symptoms. Anion gap closed, glc levels improved and were more consistently in 200s/ high 100s. with semglee 30units daily. Discussed with patient importance of checking glc levels regularly and to take insulin as prescribed to avoid further episodes. Advised to check levels glc levels around the same time each day. Keep daily diary of glucose readings to take to follow up appointments in case diabetic medications need further adjustments. Patient was feeling better close to his normal self, glc levels improved and more stable, and was deemed stable for discharge. Patient had a run of SVT the evening of 03/27 with shortness of breath and development of pulmonary edema. [facility] [place] to be secondary to overload from fluid received in the emergency department. Cardiology was consulted. Echocardiogram was obtained and noted 40%EF with mod global hypokinesis with mid-distal baljit/anteroseptal/apical wall severe hypokinesis, grade 2 diastolic dysfunction, moderate pulmonary hypertension. mild mitral regurgitation. He was started on metoprolol 25mg twice daily. The following night (03/28) he was noted to be in atrial fibrillation ~midnight. Rate controlled in 60-70s. He was weaned of oxygen within 24hrs, and had continued improvement. He reported no prior history/mention of congestive heart failure or atrial fibrillation. Cardiology recommended continue metoprolol 25mg twice daily, anticoagulation (CHADSVASc score of at least 5), and follow up in office next week for further ischemic evaluation. Creatinine on discharge: 0.64 Medications: Metoprolol 25 mg twice daily for afib. Eliquis 5mg twice daily for afib. Furosemide 20mg daily for CHF. continue insulin as previously prescribed. stop lisinopril for now, given recent acute kidney injury. Follow up with PCP / Cardiology to discuss when to restart. Follow up: PCP 3-5 days Cardiology 1-2 weeks Please call to schedule / confirm appointments Physical Exam: GEN: Alert, oriented, NAD HEENT: Normal conjunctiva, sclera anicteric CV: Regular rate and rhythm, no edema Pulm: Nonlabored respirations on room air, clear bilaterally ABD: Soft, nontender, nondistended Integumentary: no rashes Neuro: Normal speech, normal affect Vital Signs/Physical Exam: Temp Pulse Resp BP Pulse Ox 97.5 F 66 18 149/72 H 97 03/29/24 16:00 03/29/24 16:00 03/29/24 16:00 03/29/24 16:00 03/29/24 16:00 Laboratory Data at Discharge: WBC 10.60 thou/uL (4.3-10.9) 03/29/24 04:57 Hgb 14.0 g/dL (13.6-17.9) 03/29/24 04:57 Hct 40.7 % (39.6-49.0) 03/29/24 04:57 Plt Count 329 thou/uL (152-406) 03/29/24 04:57 PT 12.5 SECONDS (9.4-12.5) 07/30/24 18:21 INR 1.12 03/26/24 18:21 Sodium 135 mEq/L (136-145) L 03/29/24 04:57 Potassium 3.4 mEq/L (3.5-5.1) L D 03/29/24 04:57 BUN 19 mg/dL (7-18) H 03/29/24 04:57 Creatinine 0.64 mg/dL (0.70-1.30) L 03/29/24 04:57 Glucose 143 mg/dL (74-106) H 03/29/24 04:57 Phosphorus 2.6 mg/dL (2.5-4.9) 03/27/24 05:40 Magnesium 2.2 mg/dL (1.6-2.4) 03/29/24 04:57 Total Bilirubin 1.2 mg/dL (0.2-1.0) H 03/29/24 04:57 AST 62 U/L (15-37) H 03/29/24 04:57 ALT 61 U/L (16-61) 03/29/24 04:57 Alkaline Phosphatase 167 U/L (45-117) H 03/29/24 04:57 Lipase 75 U/L (13-75) 03/26/24 18:21 Home Medications: Atorvastatin Calcium [Lipitor*] 20 mg PO BEDTIME 03/27/24 Insulin Detemir [Levemir] 35 units SQ DAILY 03/27/24 Metformin ER [Glucophage ER*] 500 mg PO DAILY 03/27/24 Apixaban [Eliquis] 5 mg PO BID 30 Days #60 tab 03/29/24 Furosemide 20 mg PO DAILY 30 Days #30 tab 03/29/24 Metoprolol Tartrate [Lopressor*] 25 mg PO BID 30 Days #60 tab 03/29/24 New Medications: Apixaban [Eliquis] 5 mg PO BID 30 Days #60 tab Furosemide 20 mg PO DAILY 30 Days #30 tab Metoprolol Tartrate [Lopressor*] 25 mg PO BID 30 Days #60 tab Physician Discharge Instructions: Physician discharge instructions: Patient presented to ED with weakness after sustaining a fall and being found laying on the ground for 20-30 min. Suspect secondary to DKA as patient reports not having strict adherence with insulin at home. Anion gap of 20.2, glc levels >400. CT chest/abd noted Cholelithasis, Moderate prostatomegaly, otherwise negative. CXR / CT head negative. He was given ~4L of IV fluids along with insulin in the ED and had improvement of his symptoms. Anion gap closed, glc levels improved and were more consistently in 200s/ high 100s. with semglee 30units daily. Discussed with patient importance of checking glc levels regularly and to take insulin as prescribed to avoid further episodes. Advised to check levels glc levels around the same time each day. Keep daily diary of glucose readings to take to follow up appointments in case diabetic medications need further adjustments. Patient was feeling better close to his normal self, glc levels improved and more stable, and was deemed stable for discharge. Patient had a run of SVT the evening of 03/27 with shortness of breath and development of pulmonary edema. [facility] [place] to be secondary to overload from fluid received in the emergency department. Cardiology was consulted. Echocardiogram was obtained and noted 40%EF with mod global hypokinesis with mid-distal baljit/anteroseptal/apical wall severe hypokinesis, grade 2 diastolic dysfunction, moderate pulmonary hypertension. mild mitral regurgitation. He was started on metoprolol 25mg twice daily. The following night (03/28) he was noted to be in atrial fibrillation ~midnight. Rate controlled in 60-70s. He was weaned of oxygen within 24hrs, and had continued improvement. He reported no prior history/mention of congestive heart failure or atrial fibrillation. Cardiology recommended continue metoprolol 25mg twice daily, anticoagulation (CHADSVASc score of at least 5), and follow up in office next week for further ischemic evaluation. Creatinine on discharge: 0.64 Medications: Metoprolol 25 mg twice daily for afib. Eliquis 5mg twice daily for afib. Furosemide 20mg daily for CHF. continue insulin as previously prescribed. stop lisinopril for now, given recent acute kidney injury. Follow up with PCP / Cardiology to discuss when to restart. Follow up: PCP 3-5 days Cardiology 1-2 weeks Please call to schedule / confirm appointments Followup: NONE,NONE [[facility] Provider[facility] - [facility] - 1-2 Weeks Time spent managing pt's care (in minutes): 45
== END 2024-03-29 17:55 | disposition home or self-care (01) | DRG 637 ==
LOC: ER 17:51 → ERHOLD 21:30 → 2ND 22:49 → OBSVTOIN 03-27 17:30
PROVIDERS: ADMIT Internal Medicine; ATTEND Hospitalist
PROC: 4A033R1 Measurement of Arterial Saturation, Peripheral, Percutaneous Approach (ICD-10-PCS; principal; 2024-03-27)
DX: E10.10 Type 1 diabetes mellitus with ketoacidosis without coma (principal); I50.23 Acute on chronic systolic (congestive) heart failure; J96.01 Acute respiratory failure with hypoxia; N17.9 Acute kidney failure, unspecified; E87.1 Hypo-osmolality and hyponatremia; I69.351 Hemiplegia and hemiparesis following cerebral infarction affecting right dominant side; I47.10 Supraventricular tachycardia, unspecified; I11.0 Hypertensive heart disease with heart failure; E86.0 Dehydration; E86.9 Volume depletion, unspecified; E78.5 Hyperlipidemia, unspecified; I34.0 Nonrheumatic mitral (valve) insufficiency; I48.91 Unspecified atrial fibrillation; I27.20 Pulmonary hypertension, unspecified; J44.9 Chronic obstructive pulmonary disease, unspecified; T38.3X6A Underdosing of insulin and oral hypoglycemic [antidiabetic] drugs, initial encounter; F17.200 Nicotine dependence, unspecified, uncomplicated; R79.89 Other specified abnormal findings of blood chemistry; Z79.4 Long term (current) use of insulin; Z11.52 Encounter for screening for COVID-19; Z79.84 Long term (current) use of oral hypoglycemic drugs; Z79.899 Other long term (current) drug therapy; Z91.148 Patient's other noncompliance with medication regimen for other reason; W18.30XA Fall on same level, unspecified, initial encounter; Y93.89 Activity, other specified; Y92.9 Unspecified place or not applicable; Y99.9 Unspecified external cause status
CPT/HCPCS: 36415; 36600; 70450; 71045; 71250; 74176; 80048; 80053; 80076; 81001; 82550; 82805; 82947; 83036; 83605; 83690; 83735; 83880; 84100; 84484; 85025; 85027; 85610; 87040; 87804; 87811; 93005; 93306; 94640; 96372; 97116; 97161; 97530; 99285; G0378; J0360; J0696; J1644; J1720; J1940; J7030; J7613; J7614

== ENCOUNTER 2025-01-10 15:54 | Emergency (ER) | payer OTHER ==
--- OUTSIDE RECORDS SUMMARY | 2025-01-10 15:57 | XMS REPORT | Continuity of Care Document ---
Author Name Unknown Address [address] [place] [address] [place] [id number] [facility] Address [address] [facility] [address] [place] [address] Care Team Providers Care Fiberglasser Name Role Phone Vandana Romeo Attending Clinician Unavailable Encounters Start Date/Time End Date/Time Encounter Type Admission Type Attending Clinicians Care Facility Care Department Encounter ID Source 2022-08-01 14:28[id number] [facility] 2021-12-01 09:45:03 [facility] [id number] [facility] 2021-11-26 08:49[facility]02 [id number] [facility]
--- NOTE | 2025-01-10 18:09 | RAD REPORT ---
EXAMINATION: Head Brain Wo Cont CLINICAL INDICATION: Male, 74 years old.Pain;Trauma TECHNIQUE: Axial CT images from the skull base to the vertex without intravenous contrast. Coronal an d sagittal reformatted images were created from the data set. One or more of the following dose reduction techniques were used: Automated exposure control, adjustment of the mA and/or kV according to patient size, and/or iterative reconstruction. Unless otherwise specified, incidental findings do not require dedicated imaging follow-up. [id number]. COMPARISON: 03/26/2024 FINDINGS: INTRACRANIAL: No acute intracranial hemorrhage. No hydrocephalus. No mass effect or midline shift. Mo derate chronic small vessel ischemic changes.Likely remote left frontal lobe and right occipital lobe cortical infarct. Remote right proctor radiata lacunar infarct. Moderate cerebral atrophy. VASCULATURE: No visualized abnormalities in the arteries or dural venous sinuses. SCALP/SKULL: No calvarial fracture identified. No acute soft tissue abnormality. SINUSES: The visualized paranasal sinuses are mostly clear. No significant mastoid fluid. IMPRESSION: No acute intracranial abnormality. Though new from prior, likely chronic bilateral cerebral infarcts.
[2025-01-10] MEDS ORDERED: LIDOCAINE 2% W/EPI 1:200,000 MPF 20 ML VIAL IM ONE (18:15)
--- NOTE | 2025-01-10 18:53 | EDPHYS ---
Physician Documentation [facility] – [place], [place] Name: Mauricio Gomez Age: 74 yrs Sex: Male : 1950 Arrival Date: 01/10/2025 Time: 15:54 Bed 16 Private MD: ED Physician Parveen Kerns HPI: 01/10 17:33 This 74 yrs old Male presents to ER via EMS with complaints of Fall Injury, bo1 Head Injury-Adult. 17:33 Details of fall: The patient fell from an upright position, while walking, \T\ HEB, pt bo1 states he lost his balance and fell down. Onset: The symptoms/episode began/occurred suddenly. Associated injuries: The patient sustained injury to the head. Severity of symptoms: in the emergency department the symptoms are unchanged, Laceration to the right temporal area. Pt denies any LOC. Historical: - Allergies: 16:06 No Known Allergies; me1 - PMHx: 16:06 Cerebrovascular accident; diabetes mellitus; Hypertensive disorder; me1 - PSHx: 16:06 None; me1 - Immunization history:: Adult Immunizations up to date. - Infectious Disease History:: Denies. - Social history:: Smoking status: Patient reports the use of cigarette tobacco products, denies chronic smoking, but will smoke occasionally. ROS: 18:16 Constitutional: Negative for fever, chills, and weight loss bo1 18:16 Eyes: Negative for acute changes, 18:16 Neck: Negative for pain with movement, pain at rest, 18:16 Cardiovascular: Negative for chest pain, 18:16 Respiratory: Negative for shortness of breath, 18:16 Abdomen/GI: Negative for abdominal pain, 18:16 MS/extremity: Negative for acute changes, injury or acute deformity, pain, 18:16 Skin: Positive for laceration(s), of the right temporal area, 18:16 Neuro: Negative for altered mental status, headache, acute changes, 18:16 All other systems are negative, Exam: 18:19 Constitutional: This is a well developed, well nourished patient who is awake, alert, bo1 and in no acute distress. 18:19 Constitutional: The patient appears in no acute distress, alert, awake, comfortable, 18:19 Head/face: Noted is a laceration(s), that is deep, 3 cm(s), of the right temporal area, 18:19 Eyes: Exam is negative for acute changes, visual changes, 18:19 Neck: Exam negative for acute changes, obvious evidence of injury or deformity, External neck: is normal, no acute changes, 18:19 Cardiovascular: Rate: normal, Rhythm: regular, Pulses: no pulse deficits are appreciated, 18:19 Respiratory: Respirations: normal, Breath sounds: are clear throughout, 18:19 Musculoskeletal/extremity: Extremities: all appear grossly normal, with no appreciated pain with palpation, 18:19 Neuro: Exam negative for acute changes, focal neuro deficits, Orientation: is normal, appropriate for stated age, no acute changes, Mentation: is normal, appropriate for stated age, no acute changes, Vital Signs: 16:03 BP 172 / 74; Pulse 81; Resp 16; Temp 98.4; Pulse Ox 97% ; Weight 83.91 kg; Height 6 ft. me1 0 in. ; Pain 0/10; 17:00 BP 138 / 72; Pulse 81; Resp 18; Pulse Ox 97% ; me1 18:00 BP 152 / 68; Pulse 76; Resp 17; Pulse Ox 100% ; me1 18:56 BP 148 / 68; Pulse 78; Resp 16; Temp 98.2; Pulse Ox 98% ; me1 16:03 Body Mass Index 25.09 (83.91 kg, 182.88 cm) me1 16:03 Pain Scale: Adult me1 Patrice Coma Score: 18:19 Eye Response: spontaneous(4). Motor Response: obeys commands(6). Verbal Response: bo1 oriented(5). Total: 15. Laceration: 18:45 Wound Repair of 3cm ( 1.2in ) subcutaneous laceration to right temporal area. Linear bo1 shaped.. Distal neuro/vascular/tendon intact. Anesthesia: Wound infiltrated with 5 mls of 1% lidocaine w/ Epi. Wound prep: Moderate cleansing by nurse by pa. Skin closed with 5 1-0 Carol using staple gun. Dressed with 4x4's, Lilly. Patient tolerated well. MDM: 16:06 Medical Screening Exam initiated bo1 18:21 Differential diagnosis: closed head injury, laceration. Data reviewed: vital signs, bo1 radiologic studies, CT scan. 18:21 ED course: Staple closure of right temporal area laceration. bo1 01/10 16:47 Order name: CT Head Brain wo Cont; Complete Time: 18:12 bo1 Administered Medications: No medications were administered Disposition Summary: 01/10/25 18:53 Discharge Ordered Notes: Location: Home bo1 Problem: new bo1 Symptoms: have improved bo1 Condition: Stable bo1 Diagnosis - Fall on same level, unspecified bo1 - Laceration without foreign body of scalp bo1 - Unspecified injury of head, initial encounter bo1 Followup: bo1 - With: Private Physician - When: 10 - 14 days - Reason: Staple/Suture removal Discharge Instructions: - Discharge Summary Sheet bo1 - Head Injury, Adult bo1 - Laceration Care, Adult bo1 - Laceration Care, Adult, [id number] bo1 - Head Injury, Adult, [id number] bo1 Forms: - Medication Reconciliation Form bo1 - Antibiotic Education bo1 - Prescription Opioid Use bo1 - Patient Portal Instructions bo1 - Leadership Thank You Letter bo1 Signatures: Dispatcher [employer] Anat Goodwin RN RN pa1 [facility] [place] bo1
--- NOTE | 2025-01-10 18:53 | ER ---
Nurse's Notes [facility] Name: Mauricio Gomez Age: 74 yrs Sex: Male : 1950 Arrival Date: 01/10/2025 Time: 15:54 Bed 16 Private MD: Diagnosis: Fall on same level, unspecified;Laceration without foreign body of scalp;Unspecified injury of head, initial encounter Presentation: 01/10 16:03 Chief complaint: EMS states: toned out for fall in HEB. c/o generalized weakness that me1 caused fall. states that it comes on sometimes since his CVA. Laceration to right scalp, No LOC. No blood thinners. Coronavirus screen: Vaccine status: Patient reports receiving the 2nd dose of the covid vaccine. Ebola Screen: No symptoms or risks identified at this time. Initial Sepsis Screen: Does the patient meet any 2 criteria? No. Patient's initial sepsis screen is negative. Does the patient have a suspected source of infection? No. Patient's initial sepsis screen is negative. Risk Assessment: Do you want to hurt yourself or someone else? Patient reports no desire to harm self or others. Onset of symptoms was January 10, 2025. 16:03 Method Of Arrival: EMS: [place] [id number] 16:03 Acuity: DANA 3 me1 Triage Assessment: 16:06 General: Appears in no apparent distress. well groomed, well developed, well nourished. me1 General: Behavior is calm, cooperative, appropriate for age. Pain: Denies pain. EENT: No signs and/or symptoms were reported regarding the EENT system. Neuro: Level of Consciousness is awake, alert, obeys commands, Oriented to person, place, time, situation, Appropriate for age. Cardiovascular: Patient's skin is warm and dry. Respiratory: Airway is patent Respiratory effort is even, unlabored, Respiratory pattern is regular, symmetrical. GI: No signs and/or symptoms were reported involving the gastrointestinal system. : No signs and/or symptoms were reported regarding the genitourinary system. Derm: Skin is healthy with good turgor, Skin is pink, warm \T\ dry. Wound noted right temporal area Wound is laceration. Musculoskeletal: Reports generalized weakness that happens intermittently since he had his stroke. Injury Description: fall. Historical: - Allergies: 16:06 No Known Allergies; me1 - PMHx: 16:06 Cerebrovascular accident; diabetes mellitus; Hypertensive disorder; me1 - PSHx: 16:06 None; me1 - Immunization history:: Adult Immunizations up to date. - Infectious Disease History:: Denies. - Social history:: Smoking status: Patient reports the use of cigarette tobacco products, denies chronic smoking, but will smoke occasionally. Screenin:09 [facility] ED Fall Risk Assessment (Adult) History of falling in the last 3 months, me1 including since admission Yes- single mechanical fall (1 pt) Confusion or Disorientation No (0 pts) Intoxicated or Sedated No (0 pts) Impaired Gait No (0 pts) Mobility Assist Device Used No (0 pt) Altered Elimination No (0 pt) Score/Fall Risk Level 0 - 2 = Low Risk Maintained a safe environment, Provided non-skid footwear, Hourly rounding (assess needs \T\ fall precautionary measures) done. Abuse screen: Denies threats or abuse. Nutritional screening: No deficits noted. Tuberculosis screening: No symptoms or risk factors identified. Assessment: 16:09 Reassessment: See triage assessment. me1 Vital Signs: 16:03 BP 172 / 74; Pulse 81; Resp 16; Temp 98.4; Pulse Ox 97% ; Weight 83.91 kg; Height 6 ft. me1 0 in. ; Pain 0/10; 17:00 BP 138 / 72; Pulse 81; Resp 18; Pulse Ox 97% ; me1 18:00 BP 152 / 68; Pulse 76; Resp 17; Pulse Ox 100% ; me1 18:56 BP 148 / 68; Pulse 78; Resp 16; Temp 98.2; Pulse Ox 98% ; me1 16:03 Body Mass Index 25.09 (83.91 kg, 182.88 cm) me1 16:03 Pain Scale: Adult me1 Patrice Coma Score: 18:19 Eye Response: spontaneous(4). Motor Response: obeys commands(6). Verbal Response: bo1 oriented(5). Total: 15. ED Course: 16:03 Patient arrived in ED. me1 16:06 Parveen Kerns MD is Attending Physician. bo1 16:06 Triage completed. me1 16:06 Arm band placed on Patient placed in an exam room. me1 16:09 Patient has correct armband on for positive identification. Bed in low position. Call me1 light in reach. Side rails up X 1. Provided Education on: POC. Verbalized understanding.. Client placed on continuous cardiac and pulse oximetry monitoring. NIBP monitoring applied. security monitor on. Pulse ox on. NIBP on. 16:09 No provider procedures requiring assistance completed. me1 16:17 Anat Olivo, RN is Primary Nurse. me1 17:53 CT Head Brain wo Cont In Process Unspecified. EDMS 19:11 IV discontinued, intact, bleeding controlled, No redness/swelling at site. Pressure me1 dressing applied. Administered Medications: No medications were administered Medication: 16:09 VIS not applicable for this client. me1 Outcome: 18:53 Discharge ordered by . bo1 19:11 Discharged to home via wheelchair, with family, me1 19:11 Condition: stable 19:11 Discharge instructions given to patient, Instructed on discharge instructions, follow up and referral plans. wound care, Demonstrated understanding of instructions, follow-up care, wound care, 19:12 Patient left the ED. me1 Signatures: Dispatcher [employer] EDAnat Davis, RN RN me1 Parveen Kerns MD MD bo1
[2025-01-10 19:21] VITALS: BP 148/68; TEMP 98.2; O2SAT 98
== END 2025-01-10 19:12 | disposition home or self-care (01) ==
LOC: ER 15:54
DX: S01.01XA Laceration without foreign body of scalp, initial encounter (principal); W18.30XA Fall on same level, unspecified, initial encounter; F17.210 Nicotine dependence, cigarettes, uncomplicated
CPT/HCPCS: 12002; 70450; 99284